=== PATIENT | male | born 1955 | race African-American/Black ===

== ENCOUNTER 2016-07-20 10:08 | Day surgery (SDC) | payer OTHER ==
[~2016-07-20] VITALS: Ht 177.8 cm; Wt 102.0 kg
[~2016-07-20 10:08] MED LIST: ALDACTONE100 MG PO; ASPIR-LOW81 MG PO; ATENOLOL25 MG PO; Chronulac,Cephulac,E PO; FERROUS SULFAT325 MG PO; FLAGYL500 MG PO; FLEXERIL10 MG PO; FLORASTOR250 MG PO; FOLIC ACID1 MG PO; FUROSEMIDE20 MG PO; FUROSEMIDE40 MG PO; IBUPROFEN600 MG PO; K-DUR20 MEQ PO; LASIX40 MG PO; NYSTATIN-TRIAMC15 GM TP; OMEPRAZOLE20 MG PO; SENNA8.6 MG PO; SPIRONOLACTONE100 MG PO; SPIRONOLACTONE50 MG PO; TAB-A-VITE1 EACH PO; TUSSIN DM LIQU118 ML PO; XIFAXAN550 MG PO; ZANTAC150 MG PO
[2016-07-20 10:41] VITALS: BP 170/82
[2016-07-20] MEDS ORDERED: COLACE100 MG PO (15:12)
[2016-07-20] MEDS ORDERED: PERCOCET 5/31 TABLET PO (15:12)
[2016-07-20 16:09] VITALS: BP 182/84
[2016-07-20 17:27] VITALS: BP 160/82
[2016-07-20 18:06] VITALS: BP 160/82
== END 2016-07-20 18:25 | disposition home or self-care (01) ==
LOC: SDC 10:08
PROC: 0YU50JZ Supplement Right Inguinal Region with Synthetic Substitute, Open Approach (ICD-10-PCS; principal; 2016-07-20)
DX: K40.90 Unilateral inguinal hernia, without obstruction or gangrene, not specified as recurrent (principal); I10 Essential (primary) hypertension; E11.9 Type 2 diabetes mellitus without complications; K21.9 Gastro-esophageal reflux disease without esophagitis; E78.5 Hyperlipidemia, unspecified; Z87.891 Personal history of nicotine dependence
CPT/HCPCS: 88302; C1781; J0690; J1100; J1170; J1885; J2405; J3010

== ENCOUNTER 2017-11-04 09:39 | Emergency (ER) | payer OTHER ==
[~2017-11-04] VITALS: Ht 177.8 cm; Wt 122.2 kg
[~2017-11-04 09:39] MED LIST changes: +COLACE100 MG PO; +PERCOCET 5/31 TABLET PO
[2017-11-04 11:02] LABS: EOSINOPHIL (%) 0.7 % (0-5); HEMATOCRIT 46.1 % (38.0-50.0); HEMOGLOBIN 15.8 G/DL (12.5-16.6); IMMATURE GRANULOCYTE (%) 0.2 % (0.0-0.7); LYMPHOCYTE (%) 31.1 % (15-42); LYMPHOCYTE COUNT 1.3 K/uL (1.0-2.8); MCH 30.6 PG (29.0-34.0); MCHC 34.3 G/DL (30.0-36.0); MCV 89.3 FL (86-99); MONOCYTE (%) 12.9 % (3-12); MONOCYTE COUNT 0.5 K/uL (0-0.8); NEUTROPHIL (%) 54.1 % (45-76); NEUTROPHIL COUNT 2.2 K/uL (1.8-6.4); PLATELET COUNT 103 K/uL (156-360); RBC DIS.WIDTH-CV 14.3 % (11.8-14.6); RBC DIS.WIDTH-SD 46.8 % (39-53); RED BLOOD COUNT 5.16 M/uL (4.00-5.50); WHITE BLOOD COUNT 4.1 K/uL (4.1-10.2)
[2017-11-04 11:16] LABS: CHLORIDE 104 mEq/L (99-109); POTASSIUM 4.5 mEq/L (3.7-5.4); SODIUM 135 mEq/L (136-147)
[2017-11-04 11:18] LABS: GLUCOSE 155 mg/dL (70-99)
[2017-11-04 11:22] LABS: CREATININE 0.8 mg/dL (0.6-1.3); GFR ESTIMATE (CALCULATED) > 59 mL/min/ (58.99-99999)
[2017-11-04 11:23] LABS: TROP-I INTERPRETATION NEGATIVE; TROPONIN-I < 0.01 ng/mL (0.0-0.30); UREA NITROGEN (BUN) 11 mg/dL (9-23)
[2017-11-04 12:05] VITALS: BP 139/92
== END 2017-11-04 12:06 | disposition home or self-care (01) ==
LOC: EME 09:39
PROVIDERS: Emergency Medicine
DX: M54.9 Dorsalgia, unspecified (principal); G89.29 Other chronic pain; G62.9 Polyneuropathy, unspecified; I10 Essential (primary) hypertension; K21.9 Gastro-esophageal reflux disease without esophagitis; E11.9 Type 2 diabetes mellitus without complications; Z87.891 Personal history of nicotine dependence
CPT/HCPCS: 71046; 80048; 84484; 85025; 93005; 99281; 99284